=== PATIENT | female | born 1995 | race Caucasian/White ===

== ENCOUNTER 2021-07-23 16:19 | Outpatient (CLI) | payer OTHER | END 2021-07-23 20:12 | disposition home or self-care (01) | LOC: GENOP 16:19 | DX: O47.1 False labor at or after 37 completed weeks of gestation (principal); Z3A.37 37 weeks gestation of pregnancy | CPT/HCPCS: 59025; 81001; 96360; 96361; J7121 ==

== ENCOUNTER 2021-07-29 16:55 | Inpatient (IN) | payer BC ==
[~2021-07-29] VITALS: Ht 162.6 cm; Wt 81.6 kg
[2021-07-29 18:11] LABS: HEMOGLOBIN 10.7 gm/dl (12.3-15.3); RED BLOOD COUNT 3.46 M/UL (4.00-5.10); WHITE BLOOD COUNT 12.7 K/UL (4.5-11.0)
[2021-07-29] MEDS ORDERED: CLARITIN10 M2 PO (18:11)
[2021-07-29] MEDS ORDERED: PROVENTIL HFA6.7 GM INH (18:13)
[2021-07-30] MEDS ORDERED: IBUPROFEN800 MG PO (15:04)
[2021-07-30] MEDS ORDERED: DOCUSATE SODIU100 MG PO (15:04)
[2021-07-31] MEDS ORDERED: HYDROCODON-ACE1 EAC4 PO (01:45)
[2021-08-01 06:56] LABS: HEMOGLOBIN 8.9 gm/dl (12.3-15.3)
== END 2021-08-01 14:26 | disposition home or self-care (01) | DRG 806 ==
LOC: GENOP 16:55 → OB 17:17
PROVIDERS: Obstetrics & Gynecology; ADMIT Obstetrics & Gynecology
PROC: 10E0XZZ Delivery of Products of Conception, External Approach (ICD-10-PCS; principal; 2021-07-29)
PROC: 10907ZC Drainage of Amniotic Fluid, Therapeutic from Products of Conception, Via Natural or Artificial Opening (ICD-10-PCS; 2021-07-29)
PROC: 0KQM0ZZ Repair Perineum Muscle, Open Approach (ICD-10-PCS; 2021-07-30)
DX: O13.4 Gestational [pregnancy-induced] hypertension without significant proteinuria, complicating childbirth (principal); D62 Acute posthemorrhagic anemia; Z37.0 Single live birth; Z20.822 Contact with and (suspected) exposure to COVID-19; Z3A.38 38 weeks gestation of pregnancy; O99.344 Other mental disorders complicating childbirth; F41.9 Anxiety disorder, unspecified; O99.214 Obesity complicating childbirth; E66.9 Obesity, unspecified; O99.02 Anemia complicating childbirth; O70.1 Second degree perineal laceration during delivery
CPT/HCPCS: 36415; 51702; 81001; 82800; 85014; 85018; 85025; 90715; C9113; J2405; J2590